=== PATIENT | female | born 1975 | race Caucasian/White ===

== ENCOUNTER 2020-08-16 10:21 | Outpatient (REF) | payer OTHER, SELFPAY ==
[2020-08-16 10:50] LABS: MANUAL DIFF FLAG NO
[2020-08-16 11:05] LABS: Basophils Percent Auto 0.7 % (0-2); Eosinophils Absolute Auto 0.1 X10*3/uL (0.0-0.4); Eosinophils Percent Auto 2.6 % (0-4); Hematocrit 37.3 % (37-47); Hemoglobin 12.3 g/dl (12.0-16.0); Imm Gran Abs Auto 0.01 X10*3/uL (0.00-0.03); Imm Gran Pct Auto 0.2 % (0.0-0.4); Lymphocytes Absolute Auto 1.9 X10*3/uL (1.2-4.9); Lymphocytes Percent Auto 35.7 % (20-40); Mean Corpuscular Hemoglobin 31.8 pg (27.0-33.0); Mean Corpuscular Volume 96.4 fL (80-98); Mean Platelet Volume 10.4 fL (9.4-12.3); Monocytes Absolute Auto 0.5 X10*3/uL (0.1-1.2); Monocytes Percent Auto 9.2 % (2-11); Neutrophils Absolute Auto 2.8 X10*3/uL (2.0-8.3); Neutrophils Percent Auto 51.6 % (45-73); Platelet Count 237 X10*3/uL (160-400); Red Blood Count 3.87 X10*6/uL (4.20-5.50); Red Cell Distribution Width 12.9 % (11.0-16.0); White Blood Count 5.4 X10*3/uL (4.8-10.8)
[2020-08-16 11:28] LABS: Glucose Urine UA NEG (NEG); Leukocyte Esterase Urine NEG (NEG); Nitrite Urine NEG (NEG); Specific Gravity - Urine 1.025 (1.005-1.025); Urine Blood NEG (NEG); Urine Ketones NEG (NEG); Urine Protein NEG (NEG-TRACE)
[2020-08-16 11:32] LABS: Appearance Urine HAZY; Color Urine YELLOW
[2020-08-16 11:39] LABS: Alanine Aminotransferase 40 U/L (0-31); Albumin Level 4.3 g/dL (3.5-5.0); Alkaline Phosphatase 58 U/L (39-117); Anion Gap 14 (12-20); Aspartate Amino Transferase 66 U/L (5-31); Bilirubin Total 1.1 mg/dL (0.0-1.0); Blood Urea Nitrogen 10 mg/dL (9-16); Calcium 9.1 mg/dL (8.4-10.2); Carbon Dioxide 23 mmol/L (22-29); Chloride 101 mmol/L (96-108); Cholesterol 195 mg/dL; Estimated Glomerular Filt Rate > 60; Glucose Fasting 103 mg/dL (60-99); HDL Cholesterol 59 mg/dL; LDL Cholesterol Calculated 115 mg/dl; Potassium 4.3 mmol/L (3.3-5.1); Sodium 134 mmol/L (135-145); Total Protein 7.2 g/dL (6.5-8.0); Triglycerides 105 mg/dL
== END 2020-08-16 10:22 | disposition home or self-care (01) ==
LOC: HO.LNP 10:21
PROVIDERS: PCP Internal Medicine; Visit Provider Internal Medicine
DX: Z00.00 Encounter for general adult medical examination without abnormal findings (principal); R79.89 Other specified abnormal findings of blood chemistry; D70.9 Neutropenia, unspecified; K75.81 Nonalcoholic steatohepatitis (NASH); I10 Essential (primary) hypertension
CPT/HCPCS: 80053; 80061; 81003; 85025

== ENCOUNTER 2021-02-21 10:34 | Outpatient (REF) | payer OTHER, SELFPAY ==
[2021-02-21 10:59] LABS: Alanine Aminotransferase 17 U/L (0-31); Albumin Level 4.3 g/dL (3.5-5.0); Alkaline Phosphatase 61 U/L (39-117); Aspartate Amino Transferase 19 U/L (5-31); Bilirubin Direct 0.5 mg/dL (0.0-0.5); Bilirubin Total 1.3 mg/dL (0.0-1.0); Total Protein 7.1 g/dL (6.5-8.0)
== END 2021-02-21 10:35 | disposition home or self-care (01) ==
LOC: HO.LNP 10:34
PROVIDERS: Visit Provider Internal Medicine
DX: K75.81 Nonalcoholic steatohepatitis (NASH) (principal)
CPT/HCPCS: 80076

== ENCOUNTER 2021-08-22 10:46 | Outpatient (REF) | payer OTHER, SELFPAY ==
[2021-08-22 10:54] LABS: MANUAL DIFF FLAG NO
[2021-08-22 11:32] LABS: Basophils Absolute Auto 0.1 X10*3/uL (0.0-0.2); Basophils Percent Auto 0.9 % (0-2); Eosinophils Absolute Auto 0.3 X10*3/uL (0.0-0.4); Eosinophils Percent Auto 5.3 % (0-4); Hematocrit 36.9 % (37.0-47.0); Hemoglobin 12.1 g/dl (12.0-16.0); Lymphocytes Absolute Auto 2.1 X10*3/uL (1.2-4.9); Lymphocytes Percent Auto 40.2 % (20-40); Mean Corpuscular HGB Conc 32.8 g/dl (31.0-35.0); Mean Corpuscular Hemoglobin 32.2 pg (27.0-33.0); Mean Corpuscular Volume 98.1 fL (80.0-98.0); Mean Platelet Volume 10.4 fL (9.4-12.3); Monocytes Absolute Auto 0.6 X10*3/uL (0.1-1.2); Monocytes Percent Auto 10.4 % (2-11); Neutrophils Absolute Auto 2.3 x10*3/uL (2.0-8.3); Neutrophils Percent Auto 43.2 % (45-73); Platelet Count 275 X10*3/uL (160-400); Red Blood Count 3.76 X10*6/uL (4.20-5.50); Red Cell Distribution Width 13.1 % (11.0-16.0); White Blood Count 5.3 X10*3/uL (4.8-10.8)
[2021-08-22 11:52] LABS: Appearance Urine HAZY; Color Urine YELLOW; Glucose Urine UA NEG (NEG); Leukocyte Esterase Urine NEG (NEG); Nitrite Urine NEG (NEG); Specific Gravity - Urine 1.015 (1.005-1.025); Urine Blood NEG (NEG); Urine Ketones NEG (NEG); Urine Protein NEG (NEG-TRACE)
[2021-08-22 11:54] LABS: Alanine Aminotransferase 16 U/L (0-31); Albumin Level 4.4 g/dL (3.5-5.0); Alkaline Phosphatase 57 U/L (39-117); Anion Gap 15 (12-20); Aspartate Amino Transferase 21 U/L (5-31); Bilirubin Total 0.7 mg/dL (0.0-1.0); Blood Urea Nitrogen 8 mg/dL (9-16); Calcium 9.4 mg/dL (8.4-10.2); Carbon Dioxide 21 mmol/L (22-29); Chloride 105 mmol/L (96-108); Cholesterol 219 mg/dL; Estimated Glomerular Filt Rate > 60; Glucose Fasting 84 mg/dL (60-99); HDL Cholesterol 64 mg/dL; LDL Cholesterol Calculated 131 mg/dl; Sodium 137 mmol/L (135-145); Total Protein 7.3 g/dL (6.5-8.0); Triglycerides 123 mg/dL
== END 2021-08-22 10:47 | disposition home or self-care (01) ==
LOC: HO.LNP 10:46
PROVIDERS: PCP Internal Medicine; Visit Provider Internal Medicine
DX: Z00.00 Encounter for general adult medical examination without abnormal findings (principal); I10 Essential (primary) hypertension; D70.9 Neutropenia, unspecified; K75.81 Nonalcoholic steatohepatitis (NASH)
CPT/HCPCS: 80053; 80061; 81003; 85025

== ENCOUNTER 2022-09-02 10:50 | Outpatient (REF) | payer OTHER, SELFPAY ==
[2022-09-02 10:53] LABS: MANUAL DIFF FLAG NO
[2022-09-02 11:54] LABS: Appearance Urine Cloudy; Color Urine Yellow; Glucose Urine UA Negative (Negative); Leukocyte Esterase Urine Negative (Negative); Nitrite Urine Negative (Negative); PH 5.5 (5.0-9.0); Urine Blood Negative (Negative); Urine Ketones Trace mg/dL (Negative); Urine Protein Trace mg/dL (Neg-Trace)
[2022-09-02 12:02] LABS: Basophils Percent Auto 0.7 % (0-2); Eosinophils Absolute Auto 0.1 X10*3/uL (0.0-0.4); Eosinophils Percent Auto 2.8 % (0-4); Hematocrit 36.4 % (37.0-47.0); Imm Gran Abs Auto 0.01 X10*3/uL (0.00-0.03); Imm Gran Pct Auto 0.2 % (0.0-0.4); Lymphocytes Absolute Auto 1.5 X10*3/uL (1.2-4.9); Lymphocytes Percent Auto 35.3 % (20-40); Mean Corpuscular Hemoglobin 32.7 pg (27.0-33.0); Mean Corpuscular Volume 99.2 fL (80.0-98.0); Mean Platelet Volume 10.2 fL (9.4-12.3); Monocytes Absolute Auto 0.4 X10*3/uL (0.1-1.2); Monocytes Percent Auto 10.2 % (2-11); Neutrophils Absolute Auto 2.1 x10*3/uL (2.0-8.3); Neutrophils Percent Auto 50.8 % (45-73); Platelet Count 264 X10*3/uL (160-400); Red Blood Count 3.67 X10*6/uL (4.20-5.50); Red Cell Distribution Width 13.2 % (11.0-16.0); White Blood Count 4.2 X10*3/uL (4.8-10.8)
[2022-09-02 12:06] LABS: Bacteria Urine 4+ (None Seen); RBC Urine >20 /HPF (0-2); UACC Culture Trigger YES
[2022-09-02 12:51] LABS: Alanine Aminotransferase 14 U/L (0-31); Albumin Level 4.1 g/dL (3.5-5.0); Alkaline Phosphatase 53 U/L (39-117); Anion Gap 15 (12-20); Aspartate Amino Transferase 17 U/L (5-31); Bilirubin Total 0.9 mg/dL (0.0-1.0); Blood Urea Nitrogen 10 mg/dL (9-16); Carbon Dioxide 22 mmol/L (22-29); Chloride 105 mmol/L (96-108); Cholesterol 222 mg/dL; Estimated Glomerular Filt Rate > 60; Glucose Fasting 123 mg/dL (60-99); HDL Cholesterol 59 mg/dL; LDL Cholesterol Calculated 143 mg/dl; Sodium 138 mmol/L (135-145); Total Protein 6.8 g/dL (6.5-8.0); Triglycerides 100 mg/dL
== END 2022-09-02 10:51 | disposition home or self-care (01) ==
LOC: HO.LNP 10:50
PROVIDERS: Visit Provider Internal Medicine
DX: Z00.00 Encounter for general adult medical examination without abnormal findings (principal); D70.9 Neutropenia, unspecified; I10 Essential (primary) hypertension
CPT/HCPCS: 80053; 80061; 81001; 85025; 87086

== ENCOUNTER 2022-09-08 15:37 | Outpatient (REF) | payer OTHER, SELFPAY ==
[2022-09-08 15:56] LABS: Appearance Urine Clear; Color Urine Yellow; Glucose Urine UA Negative (Negative); Leukocyte Esterase Urine Negative (Negative); Nitrite Urine Negative (Negative); Specific Gravity - Urine <= 1.005 (1.005-1.025); Urine Blood Negative (Negative); Urine Ketones Negative (Negative); Urine Protein Negative (Neg-Trace)
[2022-09-08 16:01] LABS: Bacteria Urine 1+ (None Seen); Hyaline Casts Urine 0-2 /LPF (0-2); RBC Urine 0-2 /HPF (0-2); Squamous Epithelial Cell Urine 0-2 /HPF (0-2); WBC Urine 0-5 /HPF (0-5)
== END 2022-09-08 15:38 | disposition home or self-care (01) ==
LOC: HO.LNP 15:37
PROVIDERS: Visit Provider Internal Medicine
DX: R31.9 Hematuria, unspecified (principal)
CPT/HCPCS: 81001

== ENCOUNTER 2023-09-03 10:47 | Outpatient (REF) | payer OTHER, SELFPAY ==
[2023-09-03 10:50] LABS: MANUAL DIFF FLAG NO
[2023-09-03 11:25] LABS: Appearance Urine Clear; Color Urine Yellow; Glucose Urine UA Negative (Negative); Leukocyte Esterase Urine Negative (Negative); Nitrite Urine Negative (Negative); PH 6.5 (5.0-9.0); Urine Blood Negative (Negative); Urine Ketones Negative (Negative); Urine Protein Negative (Neg-Trace)
[2023-09-03 11:29] LABS: Basophils Percent Auto 0.8 % (0-2); Eosinophils Absolute Auto 0.1 X10*3/uL (0.0-0.4); Eosinophils Percent Auto 1.8 % (0-4); Hematocrit 35.2 % (37.0-47.0); Imm Gran Abs Auto 0.01 X10*3/uL (0.00-0.03); Imm Gran Pct Auto 0.3 % (0.0-0.4); Lymphocytes Absolute Auto 1.5 X10*3/uL (1.2-4.9); Lymphocytes Percent Auto 37.8 % (20-40); Mean Corpuscular HGB Conc 34.1 g/dl (31.0-35.0); Mean Corpuscular Hemoglobin 32.8 pg (27.0-33.0); Mean Corpuscular Volume 96.2 fL (80.0-98.0); Mean Platelet Volume 10.2 fL (9.4-12.3); Monocytes Absolute Auto 0.4 X10*3/uL (0.1-1.2); Monocytes Percent Auto 10.6 % (2-11); Neutrophils Absolute Auto 1.9 x10*3/uL (2.0-8.3); Neutrophils Percent Auto 48.7 % (45-73); Platelet Count 245 X10*3/uL (160-400); Red Blood Count 3.66 X10*6/uL (4.20-5.50); Red Cell Distribution Width 12.4 % (11.0-16.0)
[2023-09-03 11:31] LABS: Alanine Aminotransferase 13 U/L (0-31); Albumin Level 4.2 g/dL (3.5-5.0); Alkaline Phosphatase 47 U/L (39-117); Anion Gap 12 (12-20); Aspartate Amino Transferase 17 U/L (5-31); Bilirubin Total 0.4 mg/dL (0.0-1.0); Blood Urea Nitrogen 8 mg/dL (9-16); Calcium 9.2 mg/dL (8.4-10.2); Carbon Dioxide 22 mmol/L (22-29); Chloride 107 mmol/L (96-108); Cholesterol 168 mg/dL (<200); Estimated Glomerular Filt Rate > 60; Glucose Fasting 89 mg/dL (60-99); HDL Cholesterol 50 mg/dL (>40); LDL Cholesterol Calculated 94 mg/dL (<100); Potassium 4.2 mmol/L (3.3-5.1); Sodium 137 mmol/L (135-145); Total Protein 7.3 g/dL (6.5-8.0); Triglycerides 120 mg/dL (<150)
[2023-09-03 11:39] LABS: Bacteria Urine 1+ (None Seen); Hyaline Casts Urine 0-2 /LPF (0-2); RBC Urine 0-2 /HPF (0-2); WBC Urine 0-5 /HPF (0-5)
== END 2023-09-03 10:48 | disposition home or self-care (01) ==
LOC: HO.LNP 10:47
PROVIDERS: Visit Provider Internal Medicine
DX: Z00.00 Encounter for general adult medical examination without abnormal findings (principal); I10 Essential (primary) hypertension; D70.9 Neutropenia, unspecified
CPT/HCPCS: 80053; 80061; 81001; 85025

== ENCOUNTER 2024-03-14 11:13 | Outpatient (REF) | payer OTHER, SELFPAY ==
[2024-03-14 11:15] LABS: MANUAL DIFF FLAG NO
[2024-03-14 11:52] LABS: Basophils Absolute Auto 0.1 X10*3/uL (0.0-0.2); Eosinophils Absolute Auto 0.3 X10*3/uL (0.0-0.4); Hematocrit 35.9 % (37.0-47.0); Hemoglobin 12.3 g/dl (12.0-16.0); Imm Gran Abs Auto 0.01 X10*3/uL (0.00-0.03); Imm Gran Pct Auto 0.2 % (0.0-0.4); Lymphocytes Absolute Auto 1.8 X10*3/uL (1.2-4.9); Lymphocytes Percent Auto 34.2 % (20-40); Mean Corpuscular HGB Conc 34.3 g/dl (31.0-35.0); Mean Corpuscular Hemoglobin 32.9 pg (27.0-33.0); Mean Platelet Volume 10.3 fL (9.4-12.3); Monocytes Absolute Auto 0.5 X10*3/uL (0.1-1.2); Neutrophils Absolute Auto 2.5 x10*3/uL (2.0-8.3); Neutrophils Percent Auto 48.6 % (45-73); Platelet Count 279 X10*3/uL (160-400); Red Blood Count 3.74 X10*6/uL (4.20-5.50); White Blood Count 5.2 X10*3/uL (4.8-10.8)
== END 2024-03-14 11:14 | disposition home or self-care (01) ==
LOC: HO.LNP 11:13
PROVIDERS: Visit Provider Internal Medicine
DX: D70.9 Neutropenia, unspecified (principal)
CPT/HCPCS: 85025

== ENCOUNTER 2024-09-06 11:40 | Outpatient (REF) | payer OTHER, SELFPAY ==
[2024-09-06 11:46] LABS: MANUAL DIFF FLAG NO
[2024-09-06 12:01] LABS: Basophils Percent Auto 0.7 % (0-2); Eosinophils Absolute Auto 0.4 X10*3/uL (0.0-0.4); Eosinophils Percent Auto 8.7 % (0-4); Hematocrit 35.3 % (37.0-47.0); Hemoglobin 11.8 g/dl (12.0-16.0); Imm Gran Abs Auto 0.01 X10*3/uL (0.00-0.03); Imm Gran Pct Auto 0.2 % (0.0-0.4); Lymphocytes Absolute Auto 1.5 X10*3/uL (1.2-4.9); Lymphocytes Percent Auto 31.5 % (20-40); Mean Corpuscular HGB Conc 33.4 g/dl (31.0-35.0); Mean Corpuscular Hemoglobin 32.3 pg (27.0-33.0); Mean Corpuscular Volume 96.7 fL (80.0-98.0); Mean Platelet Volume 10.5 fL (9.4-12.3); Monocytes Absolute Auto 0.5 X10*3/uL (0.1-1.2); Neutrophils Absolute Auto 2.3 x10*3/uL (2.0-8.3); Neutrophils Percent Auto 48.9 % (45-73); Platelet Count 256 X10*3/uL (160-400); Red Blood Count 3.65 X10*6/uL (4.20-5.50); White Blood Count 4.6 X10*3/uL (4.8-10.8)
[2024-09-06 12:07] LABS: Appearance Urine Clear; Color Urine Yellow; Glucose Urine UA Negative (Negative); Leukocyte Esterase Urine Negative (Negative); Nitrite Urine Negative (Negative); Urine Blood Negative (Negative); Urine Ketones Trace mg/dL (Negative); Urine Protein Negative (Neg-Trace)
[2024-09-06 12:21] LABS: Alanine Aminotransferase 13 U/L (0-31); Albumin Level 3.9 g/dL (3.5-5.0); Alkaline Phosphatase 54 U/L (39-117); Anion Gap 12 (12-20); Aspartate Amino Transferase 22 U/L (5-31); Bilirubin Total 0.5 mg/dL (0.0-1.0); Blood Urea Nitrogen 9 mg/dL (9-16); Calcium 8.9 mg/dL (8.4-10.2); Carbon Dioxide 25 mmol/L (22-29); Chloride 107 mmol/L (96-108); Cholesterol 211 mg/dL (<200); Estimated Glomerular Filt Rate > 60; Glucose Fasting 117 mg/dL (60-99); HDL Cholesterol 61 mg/dL (>40); LDL Cholesterol Calculated 130 mg/dL (<100); Potassium 3.8 mmol/L (3.3-5.1); Sodium 140 mmol/L (135-145); Total Protein 6.8 g/dL (6.5-8.0); Triglycerides 104 mg/dL (<150)
[2024-09-06 12:25] LABS: Bacteria Urine None Seen (None Seen); Hyaline Casts Urine 0-2 /LPF (0-2); RBC Urine 0-2 /HPF (0-2); WBC Urine 0-5 /HPF (0-5)
--- OUTSIDE RECORDS SUMMARY | 2024-09-06 13:51 | XMS_ITS | Clinical Summary ---
Author Organization [facility] Address [address] [place] [address] Phone Care Team Providers Care Oil Heat Technician Name Role Phone Augustus Jin MD Primary Care Provider Allergies No known active allergies Medications lisinopril-hydr oCHLOROthiazide (PRINZIDE,ZESTO RETIC) 10-12.5 mg per tablet Take 1 tablet by mouth 1 (one) time each day. Active tamoxifen (NOLVADEX) 20 mg chemo tablet Take 1 tablet (20 mg total) by mouth 1 (one) time each day 08/12/19 25 Discontinu ed(Stop Taking at Discharge) Active Problems Problem Noted Date Diagnosed Date Primary hypertension 02/05/2023 Malignant neoplasm of lower- outer quadrant of right breast of female, estrogen receptor positive ([facility] V24, [facility] V28) 07/12/2021 Cancer Staging:Pathologic:Stage IA(pT1b, pN0(sn), cM0, G1, ER+, OK+, HER2-) - Signed by Zulay Gonzalez MD on 08/18/2024 Fibrocystic breast changes 07/03/2017 Overview (02/25/2024): 06/30/2017 1) Multiple small bilateral breast cysts most likely accounting for the persistent central nodular density left breast seen on left craniocaudad view following cyst aspiration. Follow-up left craniocaudad mammogram in 6 months is recommended. ?? 2) Sub-5 mm foci in inferior left breast on baseline mammogram in the area of scattered small cysts most likely representing benign fibrocystic change. Six-month follow-up breast MRI is recommended for comparison with this baseline study. 01/05/2018 Breast MRI IMPRESSION: Stable exam. No MR evidence of malignancy. Bilateral breast MRI in one year to resume annual screening suggested. 01/05/2018 Breast mammogram Impression: Nodular density retroareolar region left breast likely corresponds to one of several cysts seen on breast MRI. Bilateral mammogram in May 2018 to resume annual screening is suggested. Lumbar spinal stenosis 03/01/2014 Encounters Date Type Department Care Team Description 08/31/2024 2:30 PM EDT Office Visit [address] [phone] Geno Washington MD Malignant neoplasm of lower-outer quadrant of right breast of female, estrogen receptor positive (CMS/HCC V24, CMS/HCC V28) (Primary Dx) 08/30/2024 8:45 AM EDT Office Visit Obstetrics and Gynecology [address] [phone] Zahida Denise CN Encounter for annual routine gynecological examination (Primary Dx); Malignant neoplasm of lower-outer quadrant of right breast of female, estrogen receptor positive (CMS/HCC V24, CMS/HCC V28) 08/29/2024 Telephone [facility] Hematology Oncology [address] [place] [phone] Candido Bell MD 08/25/2024 8:30 AM EDT Office Visit [facility] Hematology Oncology [address] [place] [phone] Candido Bell MD Malignant neoplasm of lower-outer quadrant of right breast of female, estrogen receptor positive (CMS/HCC V24, CMS/HCC V28) (Primary Dx); History of left breast cancer 08/23/2024 3:30 PM EDT Office Visit [address] [phone] Geno Washington MD Malignant neoplasm of lower-outer quadrant of right breast of female, estrogen receptor positive (CMS/HCC V24, CMS/HCC V28) (Primary Dx) 08/22/2024 Telephone [facility] [address] [facility] [address] [place] [address] Charity Bronson, claims adjustor Only 08/22/2024 Telephone General Surgery [facility] 175 [facility] [address] [place] [phone] Geno Washington MD Forms/questionnaires 08/18/2024 12:44 PM EDT - 08/18/2024 11:59 PM EDT Hospital Encounter [facility] Radiation Oncology [address] [place] [phone] Zulay Gonzalez MD Malignant neoplasm of lower-outer quadrant of right breast of female, estrogen receptor positive (CMS/HCC V24, CMS/HCC V28); History of cancer of left breast; History of therapeutic radiation Discharge Disposition: Home or Self Care 08/18/2024 12:44 PM EDT - 08/18/2024 11:59 PM EDT Hospital Encounter [facility] Radiation Oncology [address] [place] [phone] Discharge Disposition: Home or Self Care 08/17/2024 4:00 PM EDT Office Visit [address] [place] [phone] Geno Washington MD Malignant neoplasm of lower-outer quadrant of right breast of female, estrogen receptor positive (CMS/HCC V24, CMS/HCC V28) (Primary Dx) 08/11/2024 11:30 AM EDT - 08/11/2024 1:30 PM EDT Surgery [facility] OR [address] [place] [phone] Geno Washington MD RIGHT BREAST PARTIAL MASTECTOMY, SENTINEL LYMPH NODE BIOPSY, MAGSEED [59584 (CPT??) +2 more] 08/11/2024 10:44 AM EDT Anesthesia Event [address] [phone] Alexandro Cosby DO Spencer, Mark A, MD 08/11/2024 8:30 AM EDT - 08/11/2024 11:59 PM EDT Hospital Encounter [facility] Nuclear Medicine [address] [place] [phone] Breast cancer (CMS/HCC V24, CMS/HCC V28) Discharge Disposition: Home or Self Care 08/11/2024 6:57 AM EDT - 08/11/2024 2:19 PM EDT Hospital Encounter [facility] Main OR [address] [place] [phone] Geno Washington MD Malignant neoplasm of lower-outer quadrant of right breast of female, estrogen receptor positive (CMS/HCC V24, CMS/HCC V28) Discharge Disposition: Home or Self Care 08/11/2024 6:31 AM EDT - 08/11/2024 11:59 PM EDT Hospital Encounter [facility] [address] [phone] Ductal carcinoma (CMS/HCC V24, CMS/HCC V28) Discharge Disposition: Home or Self Care 08/11/2024 Telephone [facility] Radiation Oncology [address] [place] [phone] Barney Groton, [place] 08/10/2024 8:51 AM EDT - 08/10/2024 11:59 PM EDT Hospital Encounter [facility] [address] [phone] Ductal carcinoma (CMS/HCC V24, CMS/HCC V28) Discharge Disposition: Home or Self Care 08/10/2024 7:35 AM EDT - 08/10/2024 11:59 PM EDT Hospital Encounter [facility] Ultrasound [address] [place] [phone] Ductal carcinoma (CMS/HCC V24, CMS/HCC V28) Discharge Disposition: Home or Self Care 08/04/2024 Telephone General Surgery [facility] [address] [phone] Geno Washington MD Forms/questionnaires 07/20/2024 Telephone Breast Care [address] [phone] Geno Washington MD 07/20/2024 Telephone General Surgery [address] [phone] Ayana Downey MA Magseed Appointment 07/19/2024 Telephone Breast [address] [phone] Charity Bronson, RN Results 07/15/2024 Telephone General Surgery [address] [phone] Ayana Downey MA Scheduling Surgery 07/13/2024 1:30 PM EST Office Visit [address] [phone] Geno Washington MD Malignant neoplasm of lower-outer quadrant of right breast of female, estrogen receptor positive (CMS/HCC V24, CMS/HCC V28) (Primary Dx); History of cancer of left breast; History of therapeutic radiation 07/08/2024 [facility] [address] [place] [address] [address] [place] [phone] Candido Bell MD 07/06/2024 1:11 PM EST - 07/06/2024 11:59 PM EST Hospital Encounter Radiology Department - [address] [phone] Abnormal mammogram Discharge Disposition: Home or Self Care 07/06/2024 12:25 PM EST - 07/06/2024 11:59 PM EST Hospital Encounter Radiology Department - [address] [phone] Abnormal mammogram Discharge Disposition: Home or Self Care 07/05/2024 1:30 PM EST Office Visit [facility] Hematology Oncology [address] [place] [phone] Candido Bell MD Invasive ductal carcinoma of breast, female, left (CMS/HCC V24, CMS/HCC V28) (Primary Dx) 06/30/2024 2:25 PM EST - 06/30/2024 11:59 PM EST Hospital Encounter Radiology Department - [address] [phone] Abnormal mammogram Discharge Disposition: Home or Self Care 06/30/2024 2:25 PM EST - 06/30/2024 11:59 PM EST Hospital Encounter Radiology Department - [address] [phone] Abnormal mammogram Discharge Disposition: Home or Self Care 06/29/2024 8:20 AM EST - 06/29/2024 11:59 PM EST Hospital Encounter Radiology Department - [address] [phone] Encounter for screening mammogram for breast cancer Discharge Disposition: Home or Self Care from Last 3 Months Surgical History Surgery Date Site/Laterality Comments BREAST LUMPECTOMY 05/11/2021 - 05/10/2022 Left PROCEDURE:BREAST LUMPECTOMY BX BREAST W DEVICE 1ST LESION ULTRASOUND GUIDE 06/11/2021 - 07/08/2021 Left lumpectomy w radiation LUMBAR FUSION N/A LUMBAR DISC SHAVING BREAST LUMPECTOMY 05/11/2024 - 05/10/2025 Right Medical History Medical History Date Comments Breast cancer (CMS/HCC V24, CMS/HCC V28) DX:Breast cancer (HCC) left breast 2021 Breast cancer (CMS/HCC V24, CMS/HCC V28) right breast 2024 Family History Medical History Relation Name Comments Cancer Father Lung and Kidney Cancer Father's Brother Kidney Cancer Father's Sister 1 Breast Cancer Father's Sister 2 Breast and rectal Breast cancer Mother Cancer Mother Breast Cancer Mother's Sister 1 Breast Cancer Mother's Sister 2 Lung and b rain Colon cancer Neg Hx Ovarian cancer Neg Hx Relation Name Status Comments Brother Father (Age 44) Father's Brother Father's Sister 1 Alive Father's Sister 2 Alive Mother (Age 49) Mother's Sister 1 Alive Mother's Sister 2 Social History Tobacco Use Types Packs/Day Years Used Date Smoking Tobacco: Never Smokeless Tobacco: Never Alcohol Use Standard Drinks/Week Comments Yes 0 (1 standard drink = 0.6 oz pur e alcohol) OCCASIONALLY Housing Instability Answer Date Recorde d Are you worried that in the next 2 months you may not have stable housing? No 08/26/2024 Food Access & Nutrition Answer Date Rec orded Do you have access to a vari ety of food including fruits and vegetables? Patient declined 08/26/2024 Health Literacy Answer Date Recorded How often do you need to hav e someone help you when you read instructions, pamphlets, or other written material from your doctor or pharmacy? Never 08/26/2024 Caregiver: How often do you need to have someone help you when you read instructions, pamphlets, or other written material from your doctor or pharmacy? Not on file 08/26/2024 Financial Risk Answer Date Recorded How hard is it for you to pa y for the very basics like food, housing, medical care, and air conditioning / heating? Patient declined 08/26/2024 Transportation Answer Date Recorded Has the lack of transportati on kept you from meetings, work, or from getting things needed for daily living? No Has the lack of transportati on kept you from medical appointments or from getting medications? No 08/26/2024 Social Isolation Answer Date Recorded How often do you feel lonely or isolated from th ose around you? Never 08/26/2024 Food Risk Answer Date Recorded Within the past 12 months we worried whether our food would run out before we got money to buy more. Never true 08/26/2024 Within the past 12 months th e food we bought just didn't last and we didn't have money to get more. Never true 08/26/2024 Dependent Care Answer Date Recorded Do you need help finding or paying for care for your loved ones. For example, early childhood or elderly care for an older adult? No 08/26/2024 Education Answer Date Recorded Do you think completing more education or training, like finishing a GED, going to college, or learning a trade, would be helpful for you? Patient declined 08/26/2024 Employment and Income Answer Date Recor ded During the last four weeks, have you been actively looking for work? Patient declined 08/26/2024 Living Situation Answer Date Recorded What is your living situation? 0 08/26/2024 Interpersonal Safety Answer Date Record ed Physical Abuse 08/11/2024 Verbal Abuse 08/11/2024 Comments No Sex and Gender Information Value Date Recorded Sex Assigned at Female 08/08/2024 2:10 PM EDT Legal Sex Female 3:49 AM EST Gender Identity Female 08/08/2024 2:10 PM EDT Sexual Orientation Straight 08/10/2024 9 :39 AM EDT Occupation Industry Job Start Date Job End Date Not on file Not on file Not on file Not on file Obstetrics History Para Term AB IAB SAB Ectopic Multiple Livin g Live Births 0 0 0 0 Last Filed Vital Signs Vital Sign Reading Time Taken Comments Blood Pressure 144/76 08/31/2024 2:35 PM EDT Pulse 104 08/31/2024 2:35 PM EDT Temperature 36.8 ??C (98.3 ??F) 08/31/2024 2:35 PM ED T Respiratory Rate 12 08/30/2024 8:52 AM EDT Oxygen Saturation 100% 08/25/2024 8:30 AM EDT Inhaled Oxygen Concentration - - Weight 99.3 kg (219 lb) 08/30/2024 8:52 AM EDT Height 172.7 cm (5' 8 ) 08/30/2024 8:52 AM EDT Body Mass Index 33.3 08/30/2024 8:52 AM EDT Plan of Treatment Upcoming Encounters Date Type Department Care Team (Late st Contact Info) Description 11/29/2024 1:45 PM EDT Office Visit [facility] Hematology Oncology [address] [place] [phone] Candido Bell MD [address] [place] [address] 12/14/2024 2:15 PM EDT Office Visit Breast Care [facility] [address] [facility] [address] [place] [phone] Geno Washington MD 175 [facility] [address] [place] [address] 02/08/2025 1:30 PM EDT Office Visit [facility] Hematology Oncology [address] [place] [phone] Candido Bell MD [address] [place] [address] Health Maintenance Due Date Last Done Comments Hepatitis B Vaccines (1 of 3 - 19+ 3-dose series) 1996 Pneumococcal Vaccine: Pediatrics (0 to 5 Years) and At-Risk Patients (6 to 64 Years) (1 of 2 - PCV) 1996 Cholesterol Screening (Lipid Panel) 04/18/2022 Colorectal Cancer Screening: Colonoscopy 04/18/2022 HIV Screening 04/18/2022 Hepatitis C Screening 04/18/2022 Hypertension/CHF/CAD Annual BMP Blood Test 06/13/2023 COVID-19 Vaccine ( season) 2024 04/16/2021, 07/16/2020, 06/18/2020 Influenza Vaccine (Season Ended) 2025 02/04/2018 Depression Screening 08/26/2025 08/26/2024 Social Influencers of Health Screening 08/26/2025 08/26/2024 Breast Cancer Screening 06/30/2026 06/30/19, 06/29/2024, 06/22/2023, Additional history exists Cervical Cancer Screening: HPV 02/06/2028 02/05/2023 DTaP,Tdap,and Td Vaccines (2 - Td or Tdap) 01/27/2030 01/28/2020 HIB Vaccines Aged Out No longer eligi ble based on patient's age to complete this topic HPV Vaccines Aged Out No longer eligi ble based on patient's age to complete this topic Hepatitis A Vaccines Aged Out No long er eligible based on patient's age to complete this topic IPV Vaccines Aged Out No longer eligi ble based on patient's age to complete this topic MMR Vaccines Aged Out No longer eligi ble based on patient's age to complete this topic Meningococcal ACWY Vaccine Aged Out N o longer eligible based on patient's age to complete this topic Meningococcal B Vaccine Aged Out No l onger eligible based on patient's age to complete this topic RSV Immunization Patients Under 20 months Aged Out No longer eligible based on patient's age to complete this topic Varicella Vaccines Aged Out No longer eligible based on patient's age to complete this topic Medical Devices Implanted Type Area Aerial Planting [employer] Cultivation Manager Device Identifier Shelf Expiration Date Model / Serial / Lot Marker 18ga Magseed 7cm - [id number] - [id number] Implanted:Qty: 1 on 08/10/2024 by Brigitte Narvaez MD at [facility] Imaging Implants Right: Breast DEVICOR VOYAA [id number] 01/08/2026 [id number] Procedures Procedure Name Priority Date/Time Associated Diagnosis Comments MG MAMMO BREAST SPECIMEN (STATISTICS) Routine 08/11/2024 12:52 PM EDT Ductal carcinoma (CMS/HCC V24, CMS/HCC V28) OXYGEN THERAPY, ADULT Routine 08/11/2024 12:20 PM EDT OXYGEN THERAPY, ADULT Routine 08/11/2024 12:20 PM EDT TISSUE EXAM Routine 08/11/2024 11:22 AM EDT Malignant neoplasm of lower-outer quadrant of right breast of female, estrogen receptor positive (CMS/HCC V24, CMS/HCC V28) TH AN LMA(NO CHARGE) Routine 08/11/2024 11:12 AM EDT OK BIOPSY/EXCISION LYMPH NODE(S) OPEN SUPERFICIAL 08/11/2024 10:43 AM EDT Malignant neoplasm of lower-outer quadrant of right breast of female, estrogen receptor positive (CMS/HCC V24, CMS/HCC V28) Case Notes Lowry Node 08/11 @ 830, Magseed 08/10 @800 Special Needs Lumpectomy RT Breast; Magseed; Lowry Lymph Node Biopsy -- asking 90 minute OK PLACEMENT LOC DEVICE BREAST PERC MAMMO GUIDANCE 1ST LESION 08/11/2024 10:43 AM EDT Malignant neoplasm of lower-outer quadrant of right breast of female, estrogen receptor positive (CMS/HCC V24, CMS/HCC V28) Case Notes Lowry Node 08/11 @ 830, Magseed 04/ @800 Special Needs Lumpectomy RT Breast; Magseed; Lowry Lymph Node Biopsy -- asking 90 minute OK MASTECTOMY PARTIAL 08/11/2024 10:43 AM EDT Malignant neoplasm of lower-outer quadrant of right breast of female, estrogen receptor positive (CMS/HCC V24, CMS/HCC V28) Case Notes Lowry Node 08/11 @ 830, Magseed 08/10 @800 Special Needs Lumpectomy RT Breast; Magseed; Lowry Lymph Node Biopsy -- asking 90 minute NM LYMPHOSCINTIGRAM Routine 08/11/2024 9 :44 AM EDT Breast cancer (CMS/HCC V24, CMS/HCC V28) MG MAMMO DIGITAL DIAGNOSTIC CLIP POST US/MR GUIDE RIGHT Routine 08/10/2024 9:23 AM EDT Ductal carcinoma (CMS/HCC V24, CMS/HCC V28) US PLCMNT BREAST LOC DEV 1ST MAGSEED LESION RIGHT Routine 08/10/2024 9:00 AM EDT Ductal carcinoma (CMS/HCC V24, CMS/HCC V28) MG MAMMO DIGITAL DIAGNOSTIC CLIP POST US/MR GUIDE RIGHT Routine 07/06/2024 1:26 PM EST Abnormal mammogram US BX BREAST PERC 1ST LESION RIGHT Routine 07/06/2024 1:11 PM EST Abnormal mammogram TISSUE EXAM Routine 07/06/2024 1:09 PM EST Abnormal mammogram HER-2 SANA, FISH Routine 07/06/2024 1:09 PM EST Abnormal mammogram US BREAST LIMITED RIGHT Routine 06/30/19 3:28 PM EST Abnormal mammogram MG MAMMO DIGITAL DIAGNOSTIC W ADRIANO RIGHT Routine 06/30/2024 3:26 PM EST Abnormal mammogram MG MAMMO DIGITAL SCREENING W ADRIANO BILAT Routine 06/29/2024 8:45 AM EST Encounter for screening mammogram for breast cancer HM HPV Routine 02/05/2023 from Last 3 Months or Most Recently Relevant to Health Maintenance Results * MG Mammo Breast Specimen (Statistics) (08/11/2024 12:52 PM EDT) Narrative RIS PACS/VR - 08/11/2024 12:53 PM EDT This order has been auto-finalized and does not contain a result. us Geno Washington MD IMG BI PROCEDURES Final Result RIS PACS/VR * Tissue exam (08/11/2024 11:22 AM EDT) Only the most recent of2 resultswithin the time period is included. Final Diagnosis A. Right breast, magnetic seed-localized partial mastectomy: Invasive ductal carcinoma, grade 1 Ductal carcinoma in situ Margins uninvolved Biopsy site changes B. Right breast, superior margin re-excision: Benign breast tissue with columnar cell change New superior margin is at least 2 cm from both invasive and in situ carcinoma C. Right breast, anterior re-excision: Benign breast tissue with adenosis New anterior margin is at least 2 cm from both invasive and in situ carcinoma D. Right axillary sentinel lymph node biopsy: No tumor seen in three lymph nodes (0/3) 08/16/2024 12:05 PM EDT [facility] Gross Description A. Breast, Right, partial mastectomy green-anterior blue-inferior orange-lateral yellow-medial black-posterior red-superior: Labeled right breast . Received in formalin, is a yellow-kirby fibrofatty breast tissue which was previously inked by the surgeon for orientation. Specimen: 26 g, 4.8 cm [id number] ior by 3.6 cm anterior to posterior by 3.2 cm medial to lateral Integrity: Intact Orientation: inked by the surgeon per the requisition and as below Mass, Slices 2 and 3 Size: 0.8 x 0.8 x 0.5 cm Description: Firm to rubbery kirby-white ill-defined mass with a central biopsy site Clip: none identified Mag seed: Within mass, slice two Distance to margins Posterior/Deep: 1.4 cm Anterior/Superfic ial: Within 0.1 cm Medial: 1.4 cm Lateral: 0.8 cm Superior: 0.6 cm Inferior: 3.5 cm Descriptive paragraph: The specimen serially section from superior to inferior into nine slices. The uninvolved cut surfaces are comprised of glistening yellow lobular adipose tissue and 10% kirby-white fibrous tissue. No additional masses or lesions are appreciated. Certified Breastfeeding Educator sections are submitted per diagram and as follows. Inking code: Blue-inferior Green-anterior Yellow-medial Black-posterior Red-superior Umpire-lateral Summary of sections: 1 and 2, test pilot sections, mass entirely submitted (Magseed removed from tissue in cassette 1) from slices two and three, respectively, one piece each The test pilot sections are placed in formalin at 1:30 PM on 08/11/24, and have a total formalin fixation time of 15.5 hours 3, perpendicular superior margin, slice one, two pieces 4, remainder of slice two, one piece 5 and 6, remainder of slice three, one piece each 7, tissue directly inferior to mass, slice four, one piece 8 and 9, tissue between mass and inferior margin, slices six and eight, respectively 10, perpendicular inferior margin, slice nine, two pieces Time collected: 11:22 AM 08/11/24 Time put in formalin: 1:30 PM 08/11/2024 Total cold ischemic time: 2 hours Time tissue exits final stage of formalin on tissue processor: 9 PM 08/14/2024 Total fixation time (ideally between 6 and 72 hours): 79.5 hours Except for test pilot sections in cassettes one and two which has a total formalin fixation time of 15.5 hours B. Breast, Right, superior reexcison red-new superior margin yellow-medial orange-lateral black posterior green-anterior: Labeled breast R, superior . Received in formalin is a 14 g, 4.8 cm medial to lateral by 3.1 cm anterior to posterior by 2.2 cm superior to inferior oriented yellow-kirby fibrofatty tissue fragments which is previously inked for orientation by the surgeon as follows: Red = new superior margin, yellow = medial, orange = lateral, black = posterior, green = anterior. The unoriented inferior aspect is inked gerri by the prosector. The specimen is serially section from medial to lateral into 11 slices. The cut surfaces are comprised of approximately 90% glistening yellow lobular adipose tissue and 10% kirby-white interspersed possible fibrous tissue. No masses or lesions are appreciated. Certified Breastfeeding Educator sections are submitted as follows: 1, perpendicular medial margin, three pieces 2, slice two, one piece 3, slice three, one piece 4, slice four, one piece 5 and 6, bisected slice six, one piece each 7 and 8, bisected slice eight, one piece each 9 and 10, bisected slice ten, one piece each close C. Breast, Right, anterior reexcison green-new anterior margin red-superior blue-inferior orange-lateral yellow-medial: Labeled right breast anterior . Received in formalin is a 27 g, 6.2 cm medial to lateral by 4.2 cm anterior to posterior by 2.1 cm superior to inferior oriented yellow-kirby fibrofatty breast tissue fragment which is previously inked for orientation by the surgeon as follows: Green = new anterior margin, red = superior, blue = inferior, orange = lateral, yellow = medial. The on inked posterior aspect is inked gerri by the prosector. The specimen is serially sectioned along the long axis from medial to lateral into 17 slices. The cut surfaces are comprised of approximately 90% glistening yellow lobular adipose tissue and 10% kirby-pink fibroglandular tissue. Certified Breastfeeding Educator sections are submitted as follows: 1, slice two, one piece 2 and 3, bisected slice five, one piece each 4 and 5, bisected slice eight, one piece each 6 and 7, bisected slice eleven, one piece each 8 and 9 no masses, lesions, or biopsy sites, bisected slice 14, one piece each 10, slice thirteen (posterior trimmed), one piece D. Lymph Node, right axillary sentinel: Labeled lymph node, right axi . Received in formalin is a 3.2 x 2.3 x 2.1 cm yellow-kirby fibrofatty tissue fragment. The specimen is centrally disrupted. There are three palpable areas of probable lymphoid tissue, measuring 1.1 x 0.5 x 0.3 cm, 1.6 x 1.3 x 0.8 cm, and 1.8 x 1.4 x 1.1 cm. Due to the disrupted nature of the specimen these three palpable areas of lymphoid tissue could represent one disrupted lymph node. The specimen is entirely submitted as follows: 1, smallest fragment, four pieces, x 2 2 and 3, midsized fragment, four pieces and three pieces, respectively, x 2 4-6, largest fragment, multiple pieces each, x 2 CELSO 08/16/2024 12:05 PM EDT [facility] ([facility]) [facility] LAB Synoptic Checklist INVASIVE CARCINOMA OF THE BREAST: Resection INVASIVE CARCINOMA OF THE BREAST: RESECTION - All Specimens 8th Edition - Protocol posted: 10/28/2023 SPECIMEN ?? Procedure: ?Excision (less than total mastectomy) ?? Specimen Laterality: ?Right TUMOR ?? Histologic Type: ?Invasive carcinoma of no special type (ductal) ?? Histologic Grade ([place] Histologic Score): ? Glandular (Acinar) / Tubular Differentiation: ?Score 2 ? Nuclear Pleomorphism: ?Score 2 ? Mitotic Rate: ?Score 1 ? Overall Grade: ?Grade 1 (scores of 3, 4 or 5) ?? Tumor Size: ?Greatest dimension of largest invasive focus (Millimeters): 8 mm ?? Tumor Focality: ?Single focus of invasive carcinoma ?? Ductal Carcinoma In Situ (DCIS): ?Present ? : ?Negative for extensive intraductal component (EIC) ? Size (Extent) of DCIS: ?Estimated size (extent) of DCIS is at least (Millimeters): 10 mm ? Architectural Patterns: ?Cribriform ? Architectural Patterns: ?Solid ? Nuclear Grade: ?Grade II (intermediate) ? Necrosis: ?Not identified ?? Lymphatic and / or Vascular Invasion: ?Not identified ?? Treatment Effect in the Breast: ?No known presurgical therapy MARGINS ?? Margin Status for Invasive Carcinoma: ?All margins negative for invasive carcinoma ? Distance from Invasive Carcinoma to Closest Margin: ?Greater than: 8 mm ? Closest Margin(s) to Invasive Carcinoma: ?Lateral ?? Margin Status for DCIS: ?All margins negative for DCIS ? Distance from DCIS to Closest Margin: ?Greater than: 8 mm REGIONAL LYMPH NODES ?? Regional Lymph Node Status: ? : ?All regional lymph nodes negative for tumor ? Total Number of Lymph Nodes Examined (sentinel and non-sentinel): ?3 ? Number of [place] Nodes Examined: ?3 pTNM CLASSIFICATION (AJCC 8th Edition) ?? Reporting of pT, pN, and (when applicable) pM categories is based on information available to the pathologist at the time the report is issued. As per the AJCC (Chapter 1, 8th Ed.) it is the managing physician's responsibility to establish the final pathologic stage based upon all pertinent information, including but potentially not limited to this pathology report. ?? pT Category: ?pT1b ?? pN Category: ?pN0 ?? N Suffix: ?(sn) ADDITIONAL FINDINGS ?? Additional Findings: ?Atypical lobular hyperplasia, cysts SPECIAL STUDIES ?? Estrogen Receptor (ER) Status: ?Positive (greater than 10% of cells demonstrate nuclear positivity) ?? Progesterone Receptor (PgR) Status: ?Positive ?? HER2 (by immunohistochemis try): ?Equivocal (Score 2+) ?? HER2 (by in situ hybridization): ?Negative (not amplified) ?? Testing Performed on 08/16/2024 12:05 PM EDT [facility] Disclaimer Unless otherwise specified, all tissue is 10% NB formalin fixed and paraffin embedded. 08/16/2024 12:05 PM EDT [facility] Tissue Right breast structure / Unknown 08/11/2024 11:22 AM EDT 08/11/2024 11:53 AM EDT Tissue specimen (specimen) Right breast structure / Unknown 08/11/2024 11:28 AM EDT 08/11/2024 11:53 AM EDT Tissue specimen (specimen) Right breast structure / Unknown 08/11/2024 11:36 AM EDT 08/11/2024 11:53 AM EDT Tissue specimen (specimen) Lymph node specimen / Unknown 08/11/2024 11:55 AM EDT 08/11/2024 1:37 PM EDT Geno Washington MD LAB PATHOLOGY ORDERABLE S Final Result [facility] [address] [place] [address], * TH AN LMA(NO CHARGE) (08/11/2024 11:12 AM EDT) Malika Canseco SRNA - 08/11/2024 11:12 AM EDT IRIS Guaman ? 08/11/2024 11:15 AM General Information and Staff Patient location during procedure: OR Resident/HAT RENOVATOR: IRIS Guaman Performed by: IRIS Guaman Authorized by: Alexandro Cosby DO ?? Intubation Airway not difficult Urgency: elective Final Airway Details Number of attempts at approach: 1Final airway type: LMA Indications and Patient Condition Indications for airway management: anesthesia Spontaneous Ventilation: absent Sedation level: Yes Preoxygenated: yes Soft Tissue Damage: No Dentition Unchanged: Yes Patient position: sniffing MILS maintained throughout Mask difficulty assessment: 1 - vent by mask Alexandro Cosby DO ANESTHESIA ORDERABLES Final Res ult * NM Lymphoscintigram (08/11/2024 9:44 AM EDT) Anatomical Region Laterality Modality Nuclear Medicine 08/11/2024 9:39 AM EDT Impressions 08/11/2024 9:41 AM EDT Intradermal injection of radioactivity for purposes of lymph node mapping. Imaging demonstrates activity in the expected region of a sentinel lymph node No evidence of immediate complication -------- FINAL REPORT -------- Dictated By: Robert Prater Dictated Date: 08/11/2024 09:39 ET Assigned Physician: Robert Prater Reviewed and Electronically Signed By: Robert Prater Signed Date: 08/11/2024 09:41 ET Workstation ID: [id number] Transcribed By: Self Edit Transcribed Date: 08/11/2024 09:39 ET Narrative 08/11/2024 9:41 AM EDT EXAM: Radionuclide scintigraphy for sentinel node identification prior to surgery. IMAGING: ??Scintigraphy after intradermal injection of radionuclide for sentinel lymph node mapping was performed. EXAM DATE AND TIME: 08/11/2024 8:30 AM HISTORY: Previous report indicates invasive right breast cancer. Preoperative lymph node localization requested. PROCEDURE: Informed consent was obtained. A procedure pause was performed including patient identification using 3 identifiers. Preprocedure imaging demonstrated: ??Right breast lesion with MAG SEED placement LATERALITY: ??RIGHT Using sterile technique and following patient administered dermal application of topical anesthesia, intradermal injection of radionuclide was performed. A 25-gauge introducer was used. ??A skin wheal was visualized. Radionuclide administered: ??Tc 99m filtered sulfur colloid DOSE: ??0.890 ??mCi TECHNIQUE: A small aliquot of material was introduced into the skin in the 12 o'clock, 3 o'clock, 2:00 and 9 o'clock positions at the areolar margin. Upon completion of the procedure, pressure was applied until adequate hemostasis was obtained. The patient tolerated the procedure well and was discharged in good condition after being educated regarding post procedure care and instructions and contact information should she ??be concerned about a complication. Postprocedure imaging: ??Was performed Laterality: RIGHT FINDINGS: ??Activity is demonstrated in the expected region of lymph channels extending into the region of the axilla. ??Some localized areas of increased activity consistent with sentinel lymph node are identified. Procedure Note Robert Prater MD - 08/11/2024 EXAM: Radionuclide scintigraphy for sentinel node identification prior tosurgery. IMAGING: Scintigraphy after intradermal injection of radionuclide forsentinel lymph node mapping was performed. EXAM DATE AND TIME: 08/11/2024 8:30 AM HISTORY: Previous report indicates invasive right breast cancer.Preoperative lymph node localization requested. PROCEDURE: Informed consent was obtained. A procedure pause was performed including patient identification using 3identifiers. Preprocedure imaging demonstrated: Right breast lesion with MAG SEEDplacement LATERALITY: RIGHT Using sterile technique and following patient administered dermalapplication of topical anesthesia, intradermal injection of radionuclidewas performed. A 25-gauge introducer was used. A skin wheal was visualized. Radionuclide administered: Tc 99m filtered sulfur colloid DOSE: 0.890 mCi TECHNIQUE: A small aliquot of material was introduced into the skin in the12 o'clock, 3 o'clock, 2:00 and 9 o'clock positions at the areolar margin. Upon completion of the procedure, pressure was applied until adequatehemostasis was obtained. The patient tolerated the procedure well and was discharged in goodcondition after being educated regarding post procedure care andinstructions and contact information should she be concerned about acomplication. Postprocedure imaging: Was performed Laterality: RIGHT FINDINGS: Activity is demonstrated in the expected region of lymphchannels extending into the region of the axilla. Some localized areas ofincreased activity consistent with sentinel lymph node are identified. IMPRESSION: Intradermal injection of radioactivity for purposes of lymph nodemapping. Imaging demonstrates activity in the expected region of a sentinel lymphnode No evidence of immediate complication -------- FINAL REPORT -------- Dictated By: Robert Prater Dictated Date: 08/11/2024 09:39 ET Assigned Physician: Robert Prater Reviewed and Electronically Signed By: Robert Prater Signed Date: 08/11/2024 09:41 ET Workstation ID: [id number] Transcribed By: Self Edit Transcribed Date: 08/11/2024 09:39 ET us Geno Washington MD IMG NM PROCEDURES Final Result * MG Mammo Digital Diagnostic Clip Post US/MR Guide Right (08/10/2024 9:23 AM EDT) Only the most recent of2 resultswithin the time period is included. Anatomical Region Laterality Modality Breast Right Mammography 08/10/2024 9:49 AM EDT Impressions 08/10/2024 10:04 AM EDT Ultrasound Magseed localization ??right breast mass breast. ??Further imaging follow-up per referring healthcare provider. ?? RECOMMENDATION: Clinical management of right breast is recommended. -------- FINAL REPORT -------- Dictated By: Brigitte Narvaez Dictated Date: 08/10/2024 09:49 ET Assigned Physician: Brigitte Narvaez Reviewed and Electronically Signed By: Brigitte Narvaez Signed Date: 08/10/2024 10:04 ET Workstation ID: [id number] Transcribed By: Self Edit Transcribed Date: 08/10/2024 09:49 ET Narrative 08/10/2024 10:04 AM EDT ULTRASOUND-GUIDED BREAST Magseed LOCALIZATION CLINICAL: ?? 48 years old, Female, referred for Magseed localization. ??Right invasive ductal carcinoma. COMPARISON: 07/06/2024, 06/30/2024 and 06/29/2024 PROCEDURE: ?? Informed consent was obtained. ?? Preprocedure time out was performed per routine. ??Preliminary sonographic views of the right breast confirm the presence ??of mass in the right breast at 7 o'clock 8 cm from the nipple Real-time ultrasound guidance was utilized. ??The skin was prepared using sterile technique. 1% Lidocaine buffered was used for local anesthesia. Using a lateral approach, a Magseed assembly was used to localize the target. Post-localization mammographic views show the Magseed to be in satisfactory position. ??The patient tolerated the procedure well and left the department in good condition. Postprocedure mammogram demonstrates the Magseed to be within the mass in the lower outer quadrant. ??Biopsy marker is 7 mm anterior and lateral to the Magseed. Procedure Note Brigitte Narvaez MD - 08/10/2024 ULTRASOUND-GUIDED BREAST Magseed LOCALIZATION CLINICAL: 48 years old, Female, referred for Magseed localization.Right invasive ductal carcinoma. COMPARISON: 07/06/2024, 06/30/2024 and 06/29/2024 PROCEDURE: Informed consent was obtained. Preprocedure time out was performed perroutine. Preliminary sonographic views of the right breast confirm thepresence of mass in the right breast at 7 o'clock 8 cm from the nipple Real-time ultrasound guidance was utilized. The skin was prepared usingsterile technique. 1% Lidocaine buffered was used for local anesthesia.Using a lateral approach, a Magseed assembly was used to localize thetarget. Post-localization mammographic views show the Magseed to be insatisfactory position. The patient tolerated the procedure well and leftthe department in good condition. Postprocedure mammogram demonstrates the Magseed to be within the mass inthe lower outer quadrant. Biopsy marker is 7 mm anterior and lateral tothe Magseed. IMPRESSION: Ultrasound Magseed localization right breast mass breast. Furtherimaging follow- up per referring healthcare provider. RECOMMENDATION: Clinical management of right breast is recommended. -------- FINAL REPORT -------- Dictated By: Brigitte Narvaez Dictated Date: 08/10/2024 09:49 ET Assigned Physician: Brigitte Narvaez Reviewed and Electronically Signed By: Brigitte Narvaez Signed Date: 08/10/2024 10:04 ET Workstation ID: [id number] Transcribed By: Self Edit Transcribed Date: 08/10/2024 09:49 ET us Geno Washington MD IMG BI PROCEDURES Final Result * US Plcmnt Breast Seed Loc Dev 1st Lesion Right (08/10/2024 9:00 AM EDT) Anatomical Region Laterality Modality Breast Right Ultrasound 08/10/2024 9:49 AM EDT Impressions 08/10/2024 10:04 AM EDT Ultrasound Magseed localization ??right breast mass breast. ??Further imaging follow-up per referring healthcare provider. ?? RECOMMENDATION: Clinical management of right breast is recommended. -------- FINAL REPORT -------- Dictated By: Brigitte Narvaez Dictated Date: 08/10/2024 09:49 ET Assigned Physician: Brigitte Narvaez Reviewed and Electronically Signed By: Brigitte Narvaez Signed Date: 08/10/2024 10:04 ET Workstation ID: [id number] Transcribed By: Self Edit Transcribed Date: 08/10/2024 09:49 ET Narrative 08/10/2024 10:04 AM EDT ULTRASOUND-GUIDED BREAST Magseed LOCALIZATION CLINICAL: ?? 48 years old, Female, referred for Magseed localization. ??Right invasive ductal carcinoma. COMPARISON: 07/06/2024, 06/30/2024 and 06/29/2024 PROCEDURE: ?? Informed consent was obtained. ?? Preprocedure time out was performed per routine. ??Preliminary sonographic views of the right breast confirm the presence ??of mass in the right breast at 7 o'clock 8 cm from the nipple Real-time ultrasound guidance was utilized. ??The skin was prepared using sterile technique. 1% Lidocaine buffered was used for local anesthesia. Using a lateral approach, a Magseed assembly was used to localize the target. Post-localization mammographic views show the Magseed to be in satisfactory position. ??The patient tolerated the procedure well and left the department in good condition. Postprocedure mammogram demonstrates the Magseed to be within the mass in the lower outer quadrant. ??Biopsy marker is 7 mm anterior and lateral to the Magseed. Procedure Note Brigitte Narvaez MD - 08/10/2024 ULTRASOUND-GUIDED BREAST Magseed LOCALIZATION CLINICAL: 48 years old, Female, referred for Magseed localization.Right invasive ductal carcinoma. COMPARISON: 07/06/2024, 06/30/2024 and 06/29/2024 PROCEDURE: Informed consent was obtained. Preprocedure time out was performed perroutine. Preliminary sonographic views of the right breast confirm thepresence of mass in the right breast at 7 o'clock 8 cm from the nipple Real-time ultrasound guidance was utilized. The skin was prepared usingsterile technique. 1% Lidocaine buffered was used for local anesthesia.Using a lateral approach, a Magseed assembly was used to localize thetarget. Post-localization mammographic views show the Magseed to be insatisfactory position. The patient tolerated the procedure well and leftthe department in good condition. Postprocedure mammogram demonstrates the Magseed to be within the mass inthe lower outer quadrant. Biopsy marker is 7 mm anterior and lateral tothe Magseed. IMPRESSION: Ultrasound Magseed localization right breast mass breast. Furtherimaging follow- up per referring healthcare provider. RECOMMENDATION: Clinical management of right breast is recommended. -------- FINAL REPORT -------- Dictated By: Brigitte Narvaez Dictated Date: 08/10/2024 09:49 ET Assigned Physician: Brigitte Narvaez Reviewed and Electronically Signed By: Brigitte Narvaez Signed Date: 08/10/2024 10:04 ET Workstation ID: [id number] Transcribed By: Self Edit Transcribed Date: 08/10/2024 09:49 ET us Geno Washington MD IMG US PROCEDURES Final Result * US Bx Breast Perc 1st Lesion Right (07/06/2024 1:11 PM EST) Anatomical Region Laterality Modality Breast Right Ultrasound 07/06/2024 1:51 PM EST Addenda Addendum by Surjit Solis MD on 07/07/2024 4:44 PM EST Pathology results are as follows: Right breast, 7 o'clock, 8 cm from nipple, ribbon clip, ultrasound-guided core biopsy: Invasive ductal carcinoma Pathology findings are malignant and concordant with the imaging findings. Surgical consult is recommended. Pathology results were communicated to the patient by me at approximately 4:25 PM on July 07, 2024. ??Message sent to the nurse navigator Ms. Bronson to make the arrangements for the appointment with the breast surgeon Dr. Washington at the time of this report. -------- ADDENDUM -------- Dictated By: Surjit Solis Dictated Date: 07/07/2024 16:23 ET Assigned Physician: Surjit Solis Reviewed and Electronically Signed By: Surjit Solis Signed Date: 07/07/2024 16:44 ET Workstation ID: [id number] Transcribed By: Self Edit Transcribed Date: 07/07/2024 16:23 ET Impressions 07/06/2024 2:00 PM EST Right ultrasound-guided core biopsy of probable lymph node at 7 o'clock position completed. Pathology pending. Concordance addendum will be generated when pathologic analysis is complete. BI-RADS CATEGORY: Post-Procedure Mammogram for Marker Placement RECOMMENDATION: Pathology pending for the right breast. -------- FINAL REPORT -------- Dictated By: Surjit Solis Dictated Date: 07/06/2024 13:51 ET Assigned Physician: Surjit Solis Reviewed and Electronically Signed By: Surjit Solis Signed Date: 07/06/2024 14:00 ET Workstation ID: [id number] Transcribed By: Self Edit Transcribed Date: 07/06/2024 13:51 ET Narrative 07/06/2024 2:00 PM EST Procedure: US BX BREAST PERC 1ST LESION RIGHT, MG MAMMO DIGITAL DIAGNOSTIC CLIP POST US GUIDE RIGHT History: Patient is status post diagnostic mammogram/ultrasound workup on June 30, 2023 that recommended ultrasound-guided core biopsy of a probable lymph node identified at 7 o'clock position at 8 cm from the nipple, potentially correlating with the mammographic finding in the lower breast posterior depth. The procedure was explained to the patient including benefits and alternatives. The risks, including but not limited to infection and bleeding, were reviewed and the patient agreed to undergo the procedure, signing the consent form. Her identity was confirmed with two unique patient identifiers. Right ultrasound-guided core biopsy: The patient's right ??breast was imaged with the Alfred ultrasound unit and images of the probable lymph node at 7 o'clock at the distance of 8 cm ??from the nipple were obtained. The breast was prepped for the procedure and area was anesthetized with a local anesthetic (9 cc of lidocaine 1% buffered with Sodium Bicarbonate 4.2% (9cc: 1cc). Using a Bard 14-gauge 13 cm needle, one pass was made through the area and 3 specimens were obtained. A ribbon shape ??micromarker was placed at the site of the core biopsy. The patient experienced no complications during the procedure. Postprocedure full field digital mammogram: The patient was then moved to a digital mammographic room where CC, MLO and ML 90 degrees full field digital mammographic images of the breast were obtained. These show satisfactory placement of the ribbon shape micromarker. Total estimated blood loss: Minimal us Augustus Jin MD IMG US PROCEDURES Edited Re sult - Final * HER-2 SANA, FISH (07/06/2024 1:09 PM EST) Scan Result See Scanned Result 07/19/2024 4:29 PM EDT EXTERNAL LAB (NON-INTERFAC ED) Tissue Right breast structure / Unknown 07/06/2024 1:09 PM EST 07/11/2024 5:27 AM EST us Surjit Solis MD LAB CYTOGENETICS ORDERABLES F inal Result EXTERNAL LAB (NON-INTERFACED) * (ABNORMAL) US Breast Limited Right (06/30/2024 3:28 PM EST) Anatomical Region Laterality Modality Breast Right Ultrasound 06/30/2024 3:46 PM EST Impressions 06/30/2024 3:53 PM EST Persistent asymmetric opacity on mammogram. ??Lymph nodes in the most posterior inferior right breast at 7 o'clock. ??Somewhat discordant appearance on the mammogram and ultrasound. ??Findings and recommendations were conveyed to the patient. ??Patient was given different choices to approach the abnormality, including ultrasound-guided core biopsy with clip placement, MRI examination of the breast as well as size stereotactic core biopsy. Patient indicated that she would like to start with ultrasound-guided core biopsy. ??Appointment is scheduled. ? BI-RADS CATEGORY: 4 - SUSPICIOUS RECOMMENDATION: Core biopsy of right breast recommended. Core biopsy of right breast recommended. Mammo Location: [facility], [address] [place] [address], [id number], . -------- FINAL REPORT -------- Dictated By: Shiela Urrutia Dictated Date: 06/30/2024 15:46 ET Assigned Physician: Shiela Urrutia Reviewed and Electronically Signed By: Shiela Urrutia Signed Date: 06/30/2024 15:53 ET Workstation ID: [id number] Transcribed By: Self Edit Transcribed Date: 06/30/2024 15:46 ET Narrative 06/30/2024 3:53 PM EST CLINICAL: 48 years old, Female, focal asymmetry in the deep inferior right breast on screening examination from 06/29/2024. COMPARISON: Prior mammograms, latest from 06/29/2024. ?? FINDINGS: MAMMOGRAPHY Examination was difficult and limited due to the posterior inferior location of the abnormality. TECHNIQUE: Spot compression views of the right breast in CC and MLO projection as well as full field striped lateral views were obtained with 2-D C views and 3-D mammogram (digital breast tomosynthesis). ??The density of concern was partially visualized in the way posterior inferior central right breast probably at 6/ 7 o'clock. ??It revealed arm partially circumscribed borders. ??No new suspicious abnormalities were identified. BREAST DENSITY: B - There are scattered areas of fibroglandular density. ULTRASOUND TECHNIQUE: Targeted ultrasound examination was performed with attention to the posterior central inferior right breast. ??There is a lymph node at 7 o'clock, 8 cm from the nipple measuring 0.8 x 0.5 x 1.2 cm. ??It revealed fatty muscular center and borderline thickness of the cortex. ??By location it corresponds to the mammographic asymmetry. ??However mammographic appearance does not have definite features of the lymph node. There is no evidence of other cystic or solid masses. Procedure Note Shiela Urrutia MD - 06/30/2024 CLINICAL: 48 years old, Female, focal asymmetry in the deep inferior rightbreast on screening examination from 06/29/2024. COMPARISON: Prior mammograms, latest from 06/29/2024. FINDINGS: MAMMOGRAPHY Examination was difficult and limited due to the posterior inferiorlocation of the abnormality. TECHNIQUE: Spot compression views of the right breast in CC and MLOprojection as well as full field striped lateral views were obtained with2-D C views and 3-D mammogram (digital breast tomosynthesis). The densityof concern was partially visualized in the way posterior inferior centralright breast probably at 6/ 7 o'clock. It revealed arm partiallycircumscribed borders. No new suspicious abnormalities were identified. BREAST DENSITY: B - There are scattered areas of fibroglandulardensity. ULTRASOUND TECHNIQUE: Targeted ultrasound examination was performed with attention tothe posterior central inferior right breast. There is a lymph node at 7o'clock, 8 cm from the nipple measuring 0.8 x 0.5 x 1.2 cm. It revealedfatty muscular center and borderline thickness of the cortex. By locationit corresponds to the mammographic asymmetry. However mammographicappearance does not have definite features of the lymph node. There is no evidence of other cystic or solid masses. IMPRESSION: Persistent asymmetric opacity on mammogram. Lymph nodes in the mostposterior inferior right breast at 7 o'clock. Somewhat discordantappearance on the mammogram and ultrasound. Findings and recommendationswere conveyed to the patient. Patient was given different choices toapproach the abnormality, including ultrasound-guided core biopsy withclip placement, MRI examination of the breast as well as size stereotacticcore biopsy. Patient indicated that she would like to start with ultrasound-guided corebiopsy. Appointment is scheduled. BI-RADS CATEGORY: 4 - SUSPICIOUS RECOMMENDATION: Core biopsy of right breast recommended. Core biopsy of right breastrecommended. Mammo Location: [facility], [address] [place] [address], [id number], . -------- FINAL REPORT -------- Dictated By: Shiela Urrutia Dictated Date: 06/30/2024 15:46 ET Assigned Physician: Shiela Urrutia Reviewed and Electronically Signed By: Shiela Urrutia Signed Date: 06/30/2024 15:53 ET Workstation ID: [id number] Transcribed By: Self Edit Transcribed Date: 06/30/2024 15:46 ET us Augustus Jin MD IMG US PROCEDURES Final Res ult * (ABNORMAL) MG Mammo Digital Diagnostic w Adriano Right (06/30/2024 3:26 PM EST) Anatomical Region Laterality Modality Breast Right Mammography 06/30/2024 3:46 PM EST Impressions 06/30/2024 3:53 PM EST Persistent asymmetric opacity on mammogram. ??Lymph nodes in the most posterior inferior right breast at 7 o'clock. ??Somewhat discordant appearance on the mammogram and ultrasound. ??Findings and recommendations were conveyed to the patient. ??Patient was given different choices to approach the abnormality, including ultrasound-guided core biopsy with clip placement, MRI examination of the breast as well as size stereotactic core biopsy. Patient indicated that she would like to start with ultrasound-guided core biopsy. ??Appointment is scheduled. ? BI-RADS CATEGORY: 4 - SUSPICIOUS RECOMMENDATION: Core biopsy of right breast recommended. Core biopsy of right breast recommended. Mammo Location: [facility], [address] [place] [address], [id number], . -------- FINAL REPORT -------- Dictated By: Shiela Urrutia Dictated Date: 06/30/2024 15:46 ET Assigned Physician: Shiela Urrutia Reviewed and Electronically Signed By: Shiela Urrutia Signed Date: 06/30/2024 15:53 ET Workstation ID: [id number] Transcribed By: Self Edit Transcribed Date: 06/30/2024 15:46 ET Narrative 06/30/2024 3:53 PM EST CLINICAL: 48 years old, Female, focal asymmetry in the deep inferior right breast on screening examination from 06/29/2024. COMPARISON: Prior mammograms, latest from 06/29/2024. ?? FINDINGS: MAMMOGRAPHY Examination was difficult and limited due to the posterior inferior location of the abnormality. TECHNIQUE: Spot compression views of the right breast in CC and MLO projection as well as full field striped lateral views were obtained with 2-D C views and 3-D mammogram (digital breast tomosynthesis). ??The density of concern was partially visualized in the way posterior inferior central right breast probably at 6/ 7 o'clock. ??It revealed arm partially circumscribed borders. ??No new suspicious abnormalities were identified. BREAST DENSITY: B - There are scattered areas of fibroglandular density. ULTRASOUND TECHNIQUE: Targeted ultrasound examination was performed with attention to the posterior central inferior right breast. ??There is a lymph node at 7 o'clock, 8 cm from the nipple measuring 0.8 x 0.5 x 1.2 cm. ??It revealed fatty muscular center and borderline thickness of the cortex. ??By location it corresponds to the mammographic asymmetry. ??However mammographic appearance does not have definite features of the lymph node. There is no evidence of other cystic or solid masses. Procedure Note Shilea Urrutia MD - 06/30/2024 CLINICAL: 48 years old, Female, focal asymmetry in the deep inferior rightbreast on screening examination from 06/29/2024. COMPARISON: Prior mammograms, latest from 06/29/2024. FINDINGS: MAMMOGRAPHY Examination was difficult and limited due to the posterior inferiorlocation of the abnormality. TECHNIQUE: Spot compression views of the right breast in CC and MLOprojection as well as full field striped lateral views were obtained with2-D C views and 3-D mammogram (digital breast tomosynthesis). The densityof concern was partially visualized in the way posterior inferior centralright breast probably at 6/ 7 o'clock. It revealed arm partiallycircumscribed borders. No new suspicious abnormalities were identified. BREAST DENSITY: B - There are scattered areas of fibroglandulardensity. ULTRASOUND TECHNIQUE: Targeted ultrasound examination was performed with attention tothe posterior central inferior right breast. There is a lymph node at 7o'clock, 8 cm from the nipple measuring 0.8 x 0.5 x 1.2 cm. It revealedfatty muscular center and borderline thickness of the cortex. By locationit corresponds to the mammographic asymmetry. However mammographicappearance does not have definite features of the lymph node. There is no evidence of other cystic or solid masses. IMPRESSION: Persistent asymmetric opacity on mammogram. Lymph nodes in the mostposterior inferior right breast at 7 o'clock. Somewhat discordantappearance on the mammogram and ultrasound. Findings and recommendationswere conveyed to the patient. Patient was given different choices toapproach the abnormality, including ultrasound-guided core biopsy withclip placement, MRI examination of the breast as well as size stereotacticcore biopsy. Patient indicated that she would like to start with ultrasound-guided corebiopsy. Appointment is scheduled. BI-RADS CATEGORY: 4 - SUSPICIOUS RECOMMENDATION: Core biopsy of right breast recommended. Core biopsy of right breastrecommended. Mammo Location: [facility], [address] [place] [address], [id number], . -------- FINAL REPORT -------- Dictated By: Shiela Urrutia Dictated Date: 06/30/2024 15:46 ET Assigned Physician: Shiela Urrutia Reviewed and Electronically Signed By: Shiela Urrutia Signed Date: 06/30/2024 15:53 ET Workstation ID: [id number] Transcribed By: Self Edit Transcribed Date: 06/30/2024 15:46 ET us Augustus Jin MD IMG BI PROCEDURES Final Res ult * (ABNORMAL) MG Mammo Digital Screening w Adriano bilat (06/29/2024 8:45 AM EST) Anatomical Region Laterality Modality Breast Bilateral Mammography 06/29/2024 4:44 PM EST Impressions 06/29/2024 4:50 PM EST 1. ??Left: No mammographic evidence of malignancy 2. Right: Indeterminate cc view central to nipple posterior depth focal asymmetry which may correspond to MLO slightly below the nipple posterior depth focal asymmetry 3. Heterogeneous breast parenchyma BI-RADS CATEGORY: 0 - INCOMPLETE - NEED ADDITIONAL IMAGING EVALUATION RECOMMENDATION: Additional right breast imaging recommended. Right breast CC and MLO spot compression, full-field ML, targeted ultrasound Mammo Location: [facility], [address] [place] [address], [id number], . -------- FINAL REPORT -------- Dictated By: Juvenal Cole Dictated Date: 06/29/2024 16:44 ET Assigned Physician: Juvenal Cole Reviewed and Electronically Signed By: Juvenal Cole Signed Date: 06/29/2024 16:50 ET Workstation ID: [id number] Transcribed By: Self Edit Transcribed Date: 06/29/2024 16:44 ET Narrative 06/29/2024 4:50 PM EST A BILATERAL DIGITAL 3D SCREENING MAMMOGRAPHY HISTORY: Routine screening. ??Personal history of breast cancer status post breast conservation surgery COMPARISON: Multiple priors dating back to 06/04/2020 Technique: Bilateral full field digital mammography (3D) was performed using standard CC and MLO projections CAD ??was used to evaluate this mammogram. FINDINGS: Right: Indeterminate cc view central to nipple posterior depth focal asymmetry which may correspond to MLO slightly below the nipple posterior depth focal asymmetry Left: No suspicious masses, groups of microcalcification or areas of architectural distortion identified. Stable typically benign parenchymal asymmetries. BREAST DENSITY: C - The breasts are heterogeneously dense which may obscure small masses. Procedure Note Juvenal Cole MD - 06/29/2024 A BILATERAL DIGITAL 3D SCREENING MAMMOGRAPHY HISTORY: Routine screening. Personal history of breast cancer status postbreast conservation surgery COMPARISON: Multiple priors dating back to 06/04/2020 Technique: Bilateral full field digital mammography (3D) was performedusing standard CC and MLO projections CAD was used to evaluate this mammogram. FINDINGS: Right: Indeterminate cc view central to nipple posterior depth focal asymmetrywhich may correspond to MLO slightly below the nipple posterior depthfocal asymmetry Left: No suspicious masses, groups of microcalcification or areas ofarchitectural distortion identified. Stable typically benign parenchymalasymmetries. BREAST DENSITY: C - The breasts are heterogeneously dense which mayobscure small masses. IMPRESSION: 1. Left: No mammographic evidence of malignancy 2. Right: Indeterminate cc view central to nipple posterior depth focalasymmetry which may correspond to MLO slightly below the nipple posteriordepth focal asymmetry 3. Heterogeneous breast parenchyma BI-RADS CATEGORY: 0 - INCOMPLETE - NEED ADDITIONAL IMAGING EVALUATION RECOMMENDATION: Additional right breast imaging recommended. Right breast CC and MLO spotcompression, full-field ML, targeted ultrasound Mammo Location: [facility], [address] [place] [address], [id number], . -------- FINAL REPORT -------- Dictated By: Juvenal Cole Dictated Date: 06/29/2024 16:44 ET Assigned Physician: Juvenal Cole Reviewed and Electronically Signed By: Juvenal Cole Signed Date: 06/29/2024 16:50 ET Workstation ID: [id number] Transcribed By: Self Edit Transcribed Date: 06/29/2024 16:44 ET Augustus Jin MD IMG BI PROCEDURES Final Res ult * Cervical Cancer Screening: HPV (02/05/2023) Cervical Cancer Screening: HPV negative interpretation abstracted Historical Provider HEALTH MAINTENANCE Final Result from Last 3 Months or Most Recently Relevant to Health Maintenance Insurance [facility] 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
--- OUTSIDE RECORDS SUMMARY | 2024-09-06 13:51 | XMS_ITS | Clinical Summary ---
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) TAKE 1 TABLET(20 MG) BY MOUTH DAILY 90 tablet 2 10/06/2023 Active Active Problems No known active problems Family History Medical History Relation Name Comments Cancer Father Lung and Kidney Cancer Maternal Aunt 1 Breast Cancer Maternal Aunt 2 Lung and bra in Cancer Mother Breast Cancer Paternal Aunt 1 Breast Cancer Paternal Aunt 2 Breast and r ectal Cancer Paternal Uncle Kidney Relation Name Status Comments Brother Father (Age 44) Maternal Aunt 1 Maternal Aunt 2 Mother (Age 49) Paternal Aunt 1 Paternal Aunt 2 Paternal Uncle Social History Tobacco Use Types Packs/Day Years Used Date Smoking Tobacco: Never Smokeless Tobacco: Never Alcohol Use Standard Drinks/Week Comments Yes 0 (1 standard drink = 0.6 oz pur e alcohol) couple times a week Sex and Gender Information Value Date Recorded Sex Assigned at Not on file Gender Identity Not on file Sexual Orientation Not on file Job Start Date Occupation Industry Not on file Not on file Not on file Last Filed Vital Signs Vital Sign Reading Time Taken Comments Blood Pressure 121/61 01/25/2024 1:57 PM EDT Pulse 81 01/25/2024 1:57 PM EDT Temperature 37.2 ??C (99 ??F) 01/25/2024 1:57 PM EDT Respiratory Rate - - Oxygen Saturation 100% 01/25/2024 1:57 PM EDT Inhaled Oxygen Concentration - - Weight 98.4 kg (217 lb) 01/25/2024 1:57 PM EDT Height 174 cm (5' 8.5 ) 05/01/2023 11:09 AM EST Body Mass Index 32.51 05/01/2023 11:09 AM EST Plan of Treatment Health Maintenance Due Date Last Done Comments Hepatitis B Vaccines (1 of 3 - 3-dose series) 1977 Hepatitis C Screening 1977 COVID-19 Vaccine (#1) 1982 Pneumococcal Vaccine (1 of 2 - PCV) 12/04/1983 Depression Screening 1989 Preventative Health Evaluation 12/04/1995 Cervical Cancer Screening (P ap Smear) 1998 Colon Cancer Screening (Colonoscopy) 2022 Influenza Vaccine (#1) 2024 DTap / Tdap / Td (2 - Td or Tdap) 01/27/2030 020 RSV Ped < 20 months Aged Out No longe r eligible based on patient's age to complete this topic Insurance Payer Benefit Plan / Group Subscriber ID Effective Dates Phone Address [facility] [id number] 2021-Ruddy t [address] [facility] [address] [place] [address] HMO HEALTH [place] MEDICARE ADVANTAGE [facility] MEDICARE ADVANTAGE [id number] 2021-Roxann nt [address] [place] [address] Care 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
== END 2024-09-06 11:41 | disposition home or self-care (01) ==
LOC: HO.LNP 11:40
PROVIDERS: Visit Provider Internal Medicine
DX: Z00.00 Encounter for general adult medical examination without abnormal findings (principal); I10 Essential (primary) hypertension; D70.9 Neutropenia, unspecified
CPT/HCPCS: 80053; 80061; 81001; 85025